=== PATIENT | female | born 1950 | race Caucasian/White ===

== ENCOUNTER 2017-12-20 02:56 | Emergency (ER) | payer OTHER ==
--- NOTE | 2017-12-20 02:58 | ER Report ---
History and Physical Time Seen By MD: 02:58 HPI/ROS CHIEF COMPLAINT: Fall, Right posterior rib pain HISTORY OF PRESENT ILLNESS: 67-year-old female presents ambulatory to the ER complaining of right posterior rib pain. She describes 8/10 pain aggravated by deep inspiration and movement. She is unable to lie supine. She fell going down wooden steps on the 2nd to last step. She fell on her back on the last step, sustaining severe injury to her right posterior ribs. She denies head impact, neck pain, chest pain or headache or nausea. REVIEW OF SYSTEMS: Respiratory: No cough, no dyspnea. Cardiovascular: As above Gastrointestinal: No vomiting, no abdominal pain. Musculoskeletal: No back pain. Allergies: Coded Allergies: codeine (Verified Adverse Reaction, Intermediate, "MAKES ME VIOLENTLY ILL", 12/20/17) Home Meds No Active Prescriptions or Reported Meds Reviewed Nurses Notes: Yes Old Medical Records Reviewed: Yes Constitutional Vital Sign - Last 24 Hours 12/20/17 12/20/17 12/20/17 12/20/17 03:01 03:01 03:37 04:00 Temp 98.2 Pulse 73 Resp 18 B/P (MAP) 142/73 (96) 142/73 112/63 (79) 91/59 (70) Pulse Ox 91 O2 Delivery Room Air Physical Exam General Appearance: The patient is alert, has no immediate need for airway protection and no current signs of toxicity. Vital signs stable, afebrile, pulse ox normal HEENT: Pupils equal and round no injection. Oropharynx with moist mucous membranes dental trauma Respiratory: Chest is non tender, lungs are clear to auscultation. Very tender right posterior ribs. No bruising, ecchymosis or subcutaneous air. Cardiac: regular rate and rhythm Gastrointestinal: Abdomen is soft and non tender, no masses, bowel sounds normal. Musculoskeletal: Neck: Neck is supple and non tender. Extremities have full range of motion and are non tender. Skin: No rashes or lesions. DIFFERENTIAL DIAGNOSIS: After history and physical exam differential diagnosis was considered for fractured ribs, rib contusion, chest wall contusion, renal contusion, thoracic strain, lumbar strain, back contusion Medical Decision Making EKG/Imaging Imaging X-ray: Two-view chest x-ray, right rib series was obtained. I viewed the images myself on the PACS system. My interpretation of the images is: No pneumothorax, no infiltrate, no hemothorax, no fractured ribs. The radiologist interpretation had no clinically significant variation from this interpretation. ED Course/Re-evaluation ED Course Patient was admitted to an examination room. H&P was done. The differential diagnoses was considered. On clinical examination. Patient has right posterior rib tenderness. Diagnostic x-rays performed, unremarkable. Patient's treated with Zofran sublingual and Percocet 5/325 mg by mouth. On reevaluation after x-ray. She is feeling much better. Her x-rays are unremarkable. Results are discussed with her. Conservative treatment plan is formulated. Patient's advised ibuprofen and a limited supply of Percocet is provided for temporary pain relief. Decision to Disposition Date: Dec 20, 2017 Decision to Disposition Time: 03:46 Depart Departure Latest Vital Signs Vital Signs Date Time Temp Pulse Resp B/P (MAP) Pulse Ox O2 Delivery O2 Flow Rate FiO2 12/20/17 04:00 91/59 (70) 12/20/17 03:01 98.2 73 18 91 Room Air Impression: Primary Impression: Chest wall contusion Condition: Improved Disposition: HOME OR SELF-CARE Referrals: PETER JUAREZ MD, FARRUKH MD New Scripts No Active Prescriptions or Reported Meds Patient Instructions: Rib Contusion (ED) Additional Instructions: Take ibuprofen 200 mg 2-3 tablets 3 times a day with food Apply ice packs to the affected area for 2-3 days Use Percocet for severe pain relief Follow-up with primary care if unimproved in 3-5 days. Problem Qualifiers Primary Impression: Chest wall contusion Encounter type: initial encounter Laterality: right Qualified Codes: S20.211A - Contusion of right front wall of thorax, initial encounter LETITIA CAPPS DO Dec 20, 2017 02:58
[2017-12-20] MEDS ORDERED: ONDANSETRON 4 MG ODT TABDP SL ONE (03:10)
[2017-12-20] MEDS ORDERED: oxyCODONE/ACETAMIN 5/325MG TH 2 TAB/BOTTLE PO ONE (03:50)
--- NOTE | 2017-12-20 03:59 | RADIOLOGY IMAGING REPORT ---
FACILITY: [facility] - [place] PATIENT NAME: Claudette Frederick : 1950 MR: [id number] V: [id number] EXAM DATE: ORDERING PHYSICIAN: LETITIA CAPPS TECHNOLOGIST: [place] [facility] [place] Claudette Frederick : 1950 Visit/Account:[id number] Date of Sevice: 12/20/2017 CHEST PA AND LAT, RIBS RIGHT HISTORY: Fall on posterior lower ribs. COMPARISON: None. TECHNIQUE: PA and lateral views of the chest and detail views of right ribs. FINDINGS: Pulmonary: Lungs are clear. There is no pneumothorax or pleural effusion. Cardiomediastinal: Cardiac and mediastinal silhouettes are within normal limits. There is mild aortic calcification. Bones/soft tissues: No appreciable rib fracture. There is mild degenerative change of the spine. Ther e is a mild leftward curvature of the lower thoracic spine. There is a mild to moderate rightward cur vature of the thoracolumbar spine. The visible abdomen is normal. IMPRESSION: 1. No acute cardiopulmonary process. 2. No visible rib fracture. Report Dictated By: Jamee Baca at 12/20/2017 3:51 AM Report E-Signed By: Jamee Baca at 12/20/2017 3:55 AM WSN:[id number]
--- NOTE | 2017-12-20 03:59 | RADIOLOGY IMAGING REPORT ---
[place] [facility] [place]IENT NAME: Claudette Frederick : 1950 MR: [id number] V: [id number] EXAM DATE: ORDERING PHYSICIAN: LETITIA CAPPS TECHNOLOGIST: [place] [facility] [place]: Claudette Frederick : 1950 Visit/Account:[id number] Date of Sevice: 12/20/2017 CHEST PA AND LAT, RIBS RIGHT HISTORY: Fall on posterior lower ribs. COMPARISON: None. TECHNIQUE: PA and lateral views of the chest and detail views of right ribs. FINDINGS: Pulmonary: Lungs are clear. There is no pneumothorax or pleural effusion. Cardiomediastinal: Cardiac and mediastinal silhouettes are within normal limits. There is mild aortic calcification. Bones/soft tissues: No appreciable rib fracture. There is mild degenerative change of the spine. Ther e is a mild leftward curvature of the lower thoracic spine. There is a mild to moderate rightward cur vature of the thoracolumbar spine. The visible abdomen is normal. IMPRESSION: 1. No acute cardiopulmonary process. 2. No visible rib fracture. Report Dictated By: Jamee Baca at 12/20/2017 3:51 AM Report E-Signed By: Jamee Baca at 12/20/2017 3:55 AM WSN:[id number]
[2017-12-20 04:00] VITALS: BP 91/59
[2017-12-20] MEDS ORDERED: ROSU10TA5 PO (13:07)
[2017-12-20] MEDS ORDERED: TRAM-420 PO (13:08)
[2017-12-20] MEDS ORDERED: PNEU0.5D3 IM (13:09)
== END 2017-12-20 04:10 | disposition home or self-care (01) ==
LOC: ER 03:22
DX: S20.211A Contusion of right front wall of thorax, initial encounter (principal)
CPT/HCPCS: 71046; 71100; 99284; S0119

== ENCOUNTER → 2018-01-13 | Outpatient (CLI) | payer OTHER ==
[~2018-01-13] MED LIST: PNEU0.5D3 IM; ROSU10TA5 PO; TRAM-420 PO
--- NOTE | 2018-01-13 15:41 | RADIOLOGY IMAGING REPORT ---
[place] [facility] [place] Claudette Frederick : 1950 MR: [id number] V: [id number] EXAM DATE: ORDERING PHYSICIAN: PETER JUAREZ TECHNOLOGIST: Location: [facility] - [place] Patient: Claudette Frederick : 1950 Visit/Account:[id number] Date of Sevice: 01/13/2018 DEXA Scan Clinical history: Postmenopausal estrogen deficiency. Comparison: None available. LUMBAR SPINE: The bone mineral density (BMD) measured from L1-L4 correlates with a Z-score 0.1 and a T-score of -0. 7 which is Normal as defined by the World Health Organization. The corresponding risk of fracture in the lumbar spine is 1-2 times increased compared with a young adult reference population. HIP: Bone mineral density (BMD) measured in the Left total hip region correlates with a Z-score 1.4 and a T-score of 0.7 which is Normal as defined by the World Health Organization. The corresponding risk o f fracture in the hip is Not increased compared with a young adult reference population. T score le ft femoral neck 0.0 Bone mineral density (BMD) measured in the Femoral Neck region measures 1.037 g/cm2. Impression: 1. Lumbar spine: Normal. 2. Left Hip: Normal. 3. Femoral Neck: Bone Mineral Density is 1.037 g/cm2 The next DEXA scan of this patient should include the following sites: L1-L4 and the left hip. FRAX? WHO Fracture Risk Assessment Tool link: <http://www.shef.ac.uk/FRAX/tool.jsp?locationValue=9> PLEASE NOTE: 1) The World Health Organization defines low BMD as follows: T-score Normal > -1 Osteopenia < -1 and > -2.5 Osteoporosis < -2.5 without fractures Established osteoporosis < -2.5 with fractures 2) In general, you may wish to consider: Diagnosis Treatment Follow-up DEXA Normal BMD Prevention 2-3 years Osteopenia Prevention/therapy 1-2 years Osteoporosis Therapy Yearly 3) Fracture risk estimated from the T-score is more accurate for vertebral fractures (often spontane ous) than for hip fractures. Report Dictated By: Nadja Reyes MD at 01/13/2018 3:36 PM Report E-Signed By: Nadja Reyes MD at 01/13/2018 3:37 PM WSN:[email or web address]
== END ==
LOC: MAMO 03:32
PROVIDERS: ATTEND Emergency Medicine
DX: Z12.31 Encounter for screening mammogram for malignant neoplasm of breast (principal); Z78.0 Asymptomatic menopausal state
CPT/HCPCS: 77063; 77067; 77080

== ENCOUNTER → 2018-01-17 | Outpatient (CLI) | payer OTHER ==
[2018-01-17 10:15] LABS: PLATELET COUNT, AUTOMATED 202 K/uL (150-450)
[2018-01-17 10:27] LABS: LDL CHOLESTEROL 95 mg/dl
== END ==
LOC: LAB 09:57
PROVIDERS: ATTEND Emergency Medicine
DX: E66.3 Overweight (principal); E78.5 Hyperlipidemia, unspecified
CPT/HCPCS: 36415; 82040; 82247; 82310; 82374; 82435; 82465; 82565; 82947; 83718; 84075; 84132; 84155; 84295; 84443; 84450; 84460; 84478; 84520; 85025

== ENCOUNTER → 2018-02-20 | Outpatient (CLI) | payer OTHER ==
--- NOTE | 2018-02-21 08:36 | RADIOLOGY IMAGING REPORT ---
FACILITY: [facility] - [place] PATIENT NAME: MYA LAM : [id number] MR: [id number] V: [id number] EXAM DATE: ORDERING PHYSICIAN: PETER JUAREZ TECHNOLOGIST: Mellissa Alves PROCEDURE:RIGHT DIGITAL DIAGNOSTIC MAMMOGRAM WITH CAD ASSISTED INTERPRETATION & 3D TOMOSYNTHESIS COMPARISON:Prior mammograms 01/13/18, 03/25/14, 06/29/13, 03/14/12, 01/21/11, 01/15/10, 10/16/08. INDICATIONS:abnormal mammogram FINDINGS: Scattered fibroglandular densities are seen throughout the right breast. The patient received Spot compression views in the Right CC & MLO projections in additional to a mediolateral view of the Right breast. Additional images confirm there is a small well circumscribed ovoid nodular density in the upper outer quadrant of the Right breast in the anterior 1/3. Today's Right breast Ultrasound demonstrated a mildly prominent duct in the 9 o'clock position of the Right breast 1cm from the nipple. This may account for the finding however a 6 month follow-up Right mammogram is recommended to document stability unless clinical findings warrant more immediate attention. DIAGNOSTIC CATEGORY 3--PROBABLY BENIGN FINDING. RECOMMENDATIONS: SIX MONTH FOLLOW-UP DIAGNOSTIC MAMMOGRAM: RIGHT BREAST. IMPRESSION: BIRADS 3: Probably benign finding. A 6 month follow-up Right mammogram is recommended. Dictated by: Nadja Reyes M.D. on 02/20/2018 at 16:01 Transcribed by: SYDNI on 02/20/2018 at 16:20 Approved by: Nadja Reyes M.D. on 02/21/2018 at 8:34 [facility]
--- NOTE | 2018-02-21 08:36 | RADIOLOGY IMAGING REPORT ---
FACILITY: [facility] PATIENT NAME: MYA LAM : [id number] MR: [id number] V: [id number] EXAM DATE: [id number] ORDERING PHYSICIAN: PETER JUAREZ TECHNOLOGIST: Ricardo Wise RDMS, RDBÁRBARA PROCEDURE:US RIGHT BREAST COMPARISON:None. INDICATIONS:FURTHER EVAL FINDINGS: A mildly prominent duct is identified in the 9 o'clock position of the Right breast 1cm from the nipple measuring approximately 2.3mm in diameter. No other sonographic abnormality is identified. DIAGNOSTIC CATEGORY 3--PROBABLY BENIGN FINDING. RECOMMENDATIONS: SIX MONTH FOLLOW-UP DIAGNOSTIC MAMMOGRAM: RIGHT BREAST. IMPRESSION: BIRADS 3: Probably benign finding. A mildly prominent duct in the 9 o'clock position of the Right breast 1cm from the nipple may account for the recent mammographic findings although a 6 month follow-up Right mammogram is recommended to document stability unless clinical findings warrant more immediate attention. Dictated by: Nadja Reyes M.D. on 02/20/2018 at 16:03 Transcribed by: SYDNI on 02/20/2018 at 16:25 Approved by: Nadja Reyes M.D. on 02/21/2018 at 8:34 [facility]
== END ==
LOC: MAMO 04:25
PROVIDERS: ATTEND Emergency Medicine
DX: R92.8 Other abnormal and inconclusive findings on diagnostic imaging of breast (principal)
CPT/HCPCS: 77061; 77065

== ENCOUNTER 2018-06-21 09:45 | Outpatient (RCR) | payer OTHER ==
--- NOTE | 2018-05-15 11:11 | PT INITIAL EVALUATION ---
MEDICAL DIAGNOSIS: Right Knee Injury TREATMENT DIAGNOSIS: Right lateral meniscus strain DATE OF ONSET: 05/15/18 SUBJECTIVE: Claudette is a 67 year old female presenting to physical therapy following slipping on ice 3 weeks ago and twisting her R knee. Initially pt reports that it was really swollen and painful. Currently the swelling is down, but she is unable to straighten it and it still is painful if she pivots on it or with prolonged walking. Pt reports that she is still icing it regularly, but is taking no pain medication. Pain is rated just as an ache 1/10 at rest but can reach up to a 5-6/10 if she "moves it wrong." Pain is typically on the lateral side of the knee, but also occasionally in the posterior knee. REHAB PROBLEM LIST: Increased Pain Decreased ROM Decreased Strength Impaired Transfers Decreased Endurance Decreased Balance Decreased Function Decreased ADL's Decreased Mobility Decreased Gait PREVIOUS MEDICAL HISTORY: See EMR OCCUPATION: Retired OBJECTIVE: Pt presents with a soft knee brace on the R knee. ROM: Knee ROM (R,L): 130-12, 140-0 Strength: LE MMT (R,L): Hip: flexion: 4-/5, 5/5, ext: 5/5 B, abd: 5/5 B, add: 5/5 B. Knee: ext: 4/5 with lateral knee pain, 5/5, flexion: 4-/5, 4+/5. Ankle: DF: 4/5 with lateral knee pain, 5/5, PF: 4+/5, 5/5. Palpation: Pt is ttp along the medial and lateral joint line. Special Tests: Ligamentous testing on R: MCL/LCL (-), ACL (-) slight laxity, PCL (-) slight pain, Apley's grind (-) Gait: Gait significant for R knee with slight bend with shortened stance phase on R Other Objective Findings: Lower Extremity Functional Scale (LEFS): 44/80 ASSESSMENT: Claudette presents with signs and symptoms consistent with R lateral meniscal tear with possible ACL strain. Physical therapy is indicated to address the above listed deficits as well as improve pt function with ADL's. Short Term Goals In 2 weeks pt will increase R knee ROM to equal to that of the L knee for improved function with gait and mobility with ADL's. In 4 weeks pt will improve R LE strength to equal to the contralateral limb for improved function with ADL's. In 4 weeks pt will improve LEFS score to 53/80 for improved function with ADL's. Patient's Goals Improve function and motion to resume walking and ADL's. PLAN: Patient to be seen for Manual Therapy/STM/MET Strengthening/condition Ice/Heat Range of Motion Ultrasound Stretching Iontophoresis Neuromuscular Re-ed Closed Chain Program Electrical Stim Posture/Body mechanics Gait Trg/Balance Trg Home Exercise Program Mech./Manual Traction Therapeutic Activities Pelvic Floor 2x/Week for 4 Weeks If you have any questions, comments, or concerns about this report or plan, please contact me at . Thank you, Katy Arambula, PT, DPT, CLT MTDD
--- NOTE | 2018-06-21 11:34 | PT PLAN OF CARE ---
Physician: Smiley Millan MD Patient is being seen: 2-3x/Week Therapist: Katy Arambula, PT, DPT, CLT Medical Diagnosis: Right Knee Injury Treatment Diagnosis: Right lateral meniscus strain Date of Onset: 05/15/18 Date of Initial Evaluation: 05/15/18 Date patient was last seen: 06/21/18 Number of treatments: 10 Number of cancellations/No shows: 0 INTERVENTIONS: Manual Therapy/STM/MET Strengthening/condition Ice/Heat Range of Motion Ultrasound Stretching Iontophoresis Neuromuscular Re-ed Closed Chain Program Electrical Stim Posture/Body mechanics Gait Trg/Balance Trg Home Exercise Program Mech./Manual Traction Therapeutic Activities Pelvic Floor GOALS: In 2 weeks pt will increase R knee ROM to equal to that of the L knee for improved function with gait and mobility with ADL's. MET In 4 weeks pt will improve R LE strength to equal to the contralateral limb for improved function with ADL's. MET In 4 weeks pt will improve LEFS score to 53/80 for improved function with ADL's. MET PATIENT'S GOAL: Improve function and motion to resume walking and ADL's. Status of Patient's Goals: 3/3 MET Patient Compliance: Excellent Prognosis: Good Reasons for continuing therapy: Claudette is to discharge from physical therapy at this time secondary to pt going on vacation and competition of 3/3 functional goals. Upon discharge pt was just able to achieve full ROM into extension but the end range remains tight and is only achievable following exercise and stretching. Pt is to continue with progress towards extension goal following discharge while traveling with continued stretching and HEP performance. At the time of discharge pt showed excellent progress towards strength gains with equal strength B. Pt also shows improved balance and stability with functional movement. OBJECTIVE: ROM: Knee ROM (R,L): 140-0, 140-0 Strength: LE MMT (R,L): Hip: flexion: 5/5 B, ext: 5/5 B, abd: 5/5 B, add: 5/5 B. Knee: ext: 5/5 B, flexion: 5/5 B. Ankle: DF: 5/5 B, PF: 4+/5, 5/5. Other Objective Findings: Lower Extremity Functional Scale (LEFS): 63/80 If you have any questions, comments, or concerns about this report or plan, please contact me at . Thank you, Katy Arambula, PT, DPT, CLT MTDD
== END 2018-06-21 18:00 | disposition home or self-care (01) ==
LOC: PT 09:45
PROVIDERS: ATTEND Emergency Medicine
DX: S89.91XA Unspecified injury of right lower leg, initial encounter (principal); M25.561 Pain in right knee; W00.0XXA Fall on same level due to ice and snow, initial encounter
CPT/HCPCS: 97161

== ENCOUNTER → 2018-10-05 | Outpatient (CLI) | payer OTHER ==
[~2018-10-05] MED LIST changes: +CIPR-344 PO
== END ==
LOC: LAB 14:47
PROVIDERS: ATTEND Emergency Medicine
DX: R35.0 Frequency of micturition (principal)
CPT/HCPCS: 81001